=== PATIENT | male | born 1990 | race Hispanic/Latino ===

== ENCOUNTER 2017-10-07 20:10 | Emergency (ER) | payer SELFPAY ==
[2017-10-07] MEDS ORDERED: FLUORESCEIN SODIUM 0.6 MG/WRAP ONE (20:56)
[2017-10-07] MEDS ORDERED: TETRACAINE HCL 0.5% 2ML OPTH ONE (20:56)
--- NOTE | 2017-10-07 21:11 | EDPHYS ---
Physician Documentation [facility] Name: Chapin Fitzpatrick Age: 27 yrs Sex: Male : 1990 Arrival Date: 10/07/2017 Time: 20:11 Bed 4 Private MD: ED Physician Micheal Chua HPI: 10/07 21:00 This 27 yrs old Male presents to ER via Ambulatory with complaints of Foreign pm1 Body In Right Eye. 21:00 The patient is experiencing foreign body sensation, to the right eye, caused by metal pm1 fragment. Onset: The symptoms/episode began/occurred today. Duration: the symptoms are continuous. Aggravated by nothing. Alleviated by nothing. Associated signs and symptoms: Pertinent negatives: fever, visual changes. Patient wears glasses. Severity of symptoms: in the emergency department the symptoms are unchanged. The patient has not experienced similar symptoms in the past. The patient has not recently seen a physician. Patient was at work hammering a piece of metal and he felt something in his right eye. Patient with foreign body sensation. Patient denies any visual changes. Historical: - Allergies: 20:46 No Known Allergies; aj - Home Meds: 20:46 levothyroxine oral [Active]; unknown HTN med [Active]; aj - PMHx: 20:46 Hypertension; Hypothyroidism; aj - PSHx: 20:46 None; aj - Immunization history:: Last tetanus immunization: up to date. - Social history:: Smoking status: Patient/guardian denies using tobacco. - Ebola Screening: : Patient negative for fever greater than or equal to 101.5 degrees Fahrenheit, and additional compatible Ebola Virus Disease symptoms Patient denies exposure to infectious person Patient denies travel to an Ebola-affected area in the 21 days before illness onset No symptoms or risks identified at this time. ROS: 21:00 Constitutional: Negative for fever, chills, and weight loss, ENT: Negative for injury, pm1 pain, and discharge, Neck: Negative for injury, pain, and swelling. 21:00 Cardiovascular: Negative for chest pain, palpitations, and edema, Respiratory: Negative for shortness of breath, cough, wheezing, and pleuritic chest pain, Abdomen/GI: Negative for abdominal pain, nausea, vomiting, diarrhea, and constipation, Back: Negative for injury and pain, MS/Extremity: Negative for injury and deformity, Skin: Negative for injury, rash, and discoloration, Neuro: Negative for headache, weakness, numbness, tingling, and seizure. 21:00 Eyes: Positive for foreign body sensation, pain, Negative for blurry vision, matting, redness, vision loss, visual disturbance. Exam: 21:00 Constitutional: This is a well developed, well nourished patient who is awake, alert, pm1 and in no acute distress. Head/Face: Normocephalic, atraumatic. 21:00 Chest/axilla: Normal chest wall appearance and motion. Nontender with no deformity. No lesions are appreciated. Cardiovascular: Regular rate and rhythm with a normal S1 and S2. No gallops, murmurs, or rubs. Normal PMI, no JVD. No pulse deficits. Respiratory: Lungs have equal breath sounds bilaterally, clear to auscultation and percussion. No rales, rhonchi or wheezes noted. No increased work of breathing, no retractions or nasal flaring. Abdomen/GI: Soft, non-tender, with normal bowel sounds. No distension or tympany. No guarding or rebound. No evidence of tenderness throughout. Back: No spinal tenderness. No costovertebral tenderness. Full range of motion. Skin: Warm, dry with normal turgor. Normal color with no rashes, no lesions, and no evidence of cellulitis. MS/ Extremity: Pulses equal, no cyanosis. Neurovascular intact. Full, normal range of motion. 21:00 Eyes: Periorbital structures: appear normal, Pupils: no acute changes, Extraocular movements: no acute changes, Conjunctiva: no acute changes, no injection, Corneas: foreign body, on the right, at 3 o'clock, 1 mm piece of metal, a fluorescein strip employed to appreciate the findings, Sclera: no appreciated abnormality, no acute changes, Lids and lashes: appear normal, bilaterally, no acute changes, Examination of the other eye reveals no obvious gross abnormality. 21:00 Neuro: Orientation: is normal, Motor: is normal, moves all fours. Vital Signs: 20:46 BP 147 / 87; Pulse 98; Resp 17; Temp 98.3; Pulse Ox 97% on R/A; Weight 158.76 kg; aj Height 6 ft. 3 in. (190.50 cm); 20:46 Body Mass Index 43.75 (158.76 kg, 190.50 cm) aj Procedures: 21:07 Foreign Body Removal: a piece of metal, from the right eye, conjunctiva by using a pm1 cotton-tipped swab, The patient tolerated the removal well. MDM: 20:51 Patient medically screened. pm1 21:07 Data reviewed: vital signs. Data interpreted: Pulse oximetry: on room air is 97 %. pm1 Interpretation: normal. Counseling: I had a detailed discussion with the patient and/or guardian regarding: the historical points, exam findings, and any diagnostic results supporting the discharge/admit diagnosis, the need for outpatient follow up, to return to the emergency department if symptoms worsen or persist or if there are any questions or concerns that arise at home. 10/07 20:52 Order name: Visual Acuity; Complete Time: 21:10 pm1 10/07 20:52 Order name: Eye Tray; Complete Time: 21:10 pm1 10/07 20:52 Order name: Fluoresene Opth strip; Complete Time: 21:10 pm1 Administered Medications: 21:00 Drug: Tetracaine Drops 0.5 % 1 drops Route: Ophthalmic; Site: right eye; lp1 21:10 Drug: Gentamicin Drops 0.3 % 2 drops Route: Ophthalmic; Site: right eye; lp1 21:10 Drug: Tetanus-Diphtheria Toxoid Adult 0.5 ml {Fuel Quality Tech: [employer]. Exp: lp1 11/05/2018. Lot #: [id number]. } Route: IM; Site: right deltoid; 21:15 Follow up: Response: Medication administered at discharge. lp1 Disposition: 10/07/17 21:10 Discharged to Home. Impression: Injury of conjunctiva and corneal abrasion without foreign body, right eye - foreign body removal. - Condition is Stable. - Discharge Instructions: Corneal Abrasion. - Prescriptions for Vigamox 0.5 % Ophthalmic Drops - instill 1 drop by OPHTHALMIC route every 8 hours for 7 days; 5 milliliter. - Medication Reconciliation Form, Thank You Letter, Antibiotic Education, Prescription Opioid Use form. - Follow up: Emergency Department; When: As needed; Reason: Worsening of condition. Follow up: Victor Manuel Ordonez MD; When: 2 - 3 days; Reason: Recheck today's complaints, Continuance of care, Re-evaluation by your physician. - Problem is new. - Symptoms have improved. Addendum: 10/12/2017 17:39 Co-signature as Attending Physician, Micheal Chua MD. g s Signatures: Malathi Loera RN RN aj Radha Ayers RN RN lp1 Prem Marie, CHAIN SAW MECHANIC CHAIN SAW MECHANIC pm1 Micheal Chua MD MD Corrections: (The following items were deleted from the chart) 10/07 21:38 21:10 10/07/2017 21:10 Discharged to Home. Impression: Injury of conjunctiva and lp1 corneal abrasion without foreign body, right eye - foreign body removal. Condition is Stable. Forms are Medication Reconciliation Form, Thank You Letter, Antibiotic Education, Prescription Opioid Use. Follow up: Emergency Department; When: As needed; Reason: Worsening of condition. Follow up: Victor Manuel Ordonez; When: 2 - 3 days; Reason: Recheck today's complaints, Continuance of care, Re-evaluation by your physician. Problem is new. Symptoms have improved. pm1
--- NOTE | 2017-10-07 21:11 | ER ---
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 Redness and pain to right inner corner of eye. Transition of care: patient was not received from another setting of care. Onset of symptoms was October 07, 2017. Risk Assessment: Do you want to hurt yourself or someone else? Patient reports no desire to harm self or others. Initial Sepsis Screen: Does the patient meet any 2 criteria? No. Patient's initial sepsis screen is negative. Does the patient have a suspected source of infection? No. Patient's initial sepsis screen is negative. Care prior to arrival: None. 20:44 Method Of Arrival: Ambulatory 20:44 Acuity: JASON 2 Triage Assessment: 20:46 General: Appears in no apparent distress. comfortable, Behavior is calm, cooperative, aj appropriate for age. Pain: Complains of pain in medial aspect of conjunctiva of right eye. EENT: Sclera/Cornea are reddened in inner aspect of conjuctiva of right eye. Neuro: Level of Consciousness is awake, alert, obeys commands, Oriented to person, place, time, situation, Appropriate for age. Respiratory: Airway is patent Respiratory effort is even, unlabored, Respiratory pattern is regular, symmetrical. Derm: Skin is intact, is healthy with good turgor, Skin is pink, warm \T\ dry. normal. Historical: - Allergies: 20:46 No Known Allergies; aj - Home Meds: 20:46 levothyroxine oral [Active]; unknown HTN med [Active]; aj - PMHx: 20:46 Hypertension; Hypothyroidism; aj - PSHx: 20:46 None; aj - Immunization history:: Last tetanus immunization: up to date. - Social history:: Smoking status: Patient/guardian denies using tobacco. - Ebola Screening: : Patient negative for fever greater than or equal to 101.5 degrees Fahrenheit, and additional compatible Ebola Virus Disease symptoms Patient denies exposure to infectious person Patient denies travel to an Ebola-affected area in the 21 days before illness onset No symptoms or risks identified at this time. Screenin:15 Abuse screen: Denies threats or abuse. Denies injuries from another. Nutritional lp1 screening: No deficits noted. Tuberculosis screening: No symptoms or risk factors identified. Fall Risk None identified. Assessment: 21:00 General: Appears in no apparent distress. Behavior is appropriate for age. Pain: lp1 Complains of pain in right eye. Neuro: No deficits noted. Cardiovascular: No deficits noted. Respiratory: No deficits noted. GI: No deficits noted. : No deficits noted. EENT: Sclera/Cornea are reddened in inner aspect of conjuctiva of right eye. Derm: No deficits noted. Musculoskeletal: No deficits noted. Vital Signs: 20:46 BP 147 / 87; Pulse 98; Resp 17; Temp 98.3; Pulse Ox 97% on R/A; Weight 158.76 kg; aj Height 6 ft. 3 in. (190.50 cm); 20:46 Body Mass Index 43.75 (158.76 kg, 190.50 cm) aj ED Course: 20:11 Patient arrived in ED. ds1 20:45 Triage completed. aj 20:46 Arm band placed on left wrist. Patient placed in an exam room. aj 20:47 Radha Ayers, JORDON is Primary Nurse. lp1 20:48 Prem Marie NP is PHCP. pm1 20:48 Micheal Chua MD is Attending Physician. pm1 21:00 Assist provider with eye exam of right eye. using fluorescein stain, Performed by lp1 Prem Marie NP Assist provider with foreign body removal of small piece of metal from right cornea Set up for procedure. Performed by Prem Marie NP. 21:08 Victor Manuel Ordonez MD is Referral Physician. pm1 21:15 Patient has correct armband on for positive identification. lp1 21:15 Patient did not have IV access during this emergency room visit. lp1 Administered Medications: 21:00 Drug: Tetracaine Drops 0.5 % 1 drops Route: Ophthalmic; Site: right eye; lp1 21:10 Drug: Gentamicin Drops 0.3 % 2 drops Route: Ophthalmic; Site: right eye; lp1 21:10 Drug: Tetanus-Diphtheria Toxoid Adult 0.5 ml {Operations Analyst: [employer]. Exp: lp1 11/05/2018. Lot #: [id number]. } Route: IM; Site: right deltoid; 21:15 Follow up: Response: Medication administered at discharge. lp1 Outcome: 21:10 Discharge ordered by MD. pm1 21:15 Discharged to home ambulatory. lp1 21:15 Condition: good 21:15 Discharge instructions given to patient, Instructed on discharge instructions, follow up and referral plans. medication usage, Demonstrated understanding of instructions, follow-up care, medications, Prescriptions given X 1. 21:15 Patient left the ED. lp1 Signatures: Malathi Loera RN RN Angelic Ordoñez ds1 Radha Ayers RN RN lp1 Prem Marie, SANDRA STEEL FABRICATOR pm1 Corrections: (The following items were deleted from the chart) 21:39 21:38 Patient left the ED. lp1 lp1
[2017-10-07] MEDS ORDERED: GENTAMICIN 0.3% OPTH DROP 5ML ONE (21:14)
[2017-10-07] MEDS ORDERED: TETANUS & DIPHTHERIA TOX,ADULT 0.5 ML VIAL ONE (21:14)
== END 2017-10-07 21:38 | disposition home or self-care (01) ==
LOC: ER 20:10
PROC: 08C0XZZ Extirpation of Matter from Right Eye, External Approach (ICD-10-PCS; principal; 2017-10-07)
DX: S05.01XA Injury of conjunctiva and corneal abrasion without foreign body, right eye, initial encounter (principal); T15.91XA Foreign body on external eye, part unspecified, right eye, initial encounter; X58.XXXA Exposure to other specified factors, initial encounter; Y93.89 Activity, other specified; Y92.9 Unspecified place or not applicable; Y99.8 Other external cause status; I10 Essential (primary) hypertension; E03.9 Hypothyroidism, unspecified
CPT/HCPCS: 90714; 99284